=== PATIENT | male | born 1940 | race Caucasian/White ===

== ENCOUNTER 2017-01-01 23:57 | Emergency (ER) | payer MEDICARE ==
[2017-01-02] MEDS ORDERED: LIDOCAINE HCL 2% URO-JET 5 ML JEL.PF.APP MUCOUS MEM ONE (00:16)
--- NOTE | 2017-01-02 01:31 | ER NURSING DOCUMENTATION ---
Nurse's Notes [facility] Name:Pk Langley Age:76 yrs Sex:Male :1940 Arrival Date:01/01/2017 Time:23:57 Bed4 Private MD:Samy Delgado Diagnosis:Constipation Presentation: 01/02 00:00 Presenting complaint: Patient states: PT has not had a bowel movement for 4 days, pt rh took dulcolax this evening and attempted a fleets enema. Pt as of the last 4 hours has not been able to urinate. Transition of care: Home. 00:00 Acuity: TENA 3 rh 00:00 Method Of Arrival: Private Vehicle Triage Assessment: 00:03 General: Appears in no apparent distress, uncomfortable, Behavior is cooperative. Pain: rh Denies pain. EENT: Oral mucosa is dry. Neuro: Level of Consciousness is awake, alert, obeys commands. Cardiovascular: Capillary refill < 3 seconds. GI: Reports constipation, cramping, since 4 days ago. : Reports inability to void since 5 hours [employer]. Derm: Skin is intact, is healthy with good turgor, Skin is pink, warm & dry. Historical: - Allergies: No known drug Allergies; - Home Meds: 1. Simvastatin Oral 2. levothyroxine oral - PMHx: CONSTIPATION; BPH; HYPOTHYROIDISM; HIGH CHOLESTEROL; - PSHx: LASER PROSTATE SURGERY; - Tetanus: < 10 years. - Ebola Screening: : Patient negative for fever greater than or equal to 101.5 degrees Fahrenheit, and additional compatible Ebola Virus Disease symptoms. - Immunization history: Flu Vaccine < 1 year. - Social history: Smoking status: Patient states former smoker of tobacco. Screenin:21 Infectious Disease Risk None. Abuse screen: Denies threats or abuse. Denies injuries rh from another. Nutritional screening: No deficits noted. Assessment: 00:21 See Triage Assessment done by same RN. 01:15 Reassessment: PT was able to urinate twice and had one large bowel movement as well. . rh Vital Signs: 00:05 BP 160 / 74; Pulse 87; Resp 17; Temp 97.6(O); Pulse Ox 94% on R/A; Weight 81.65 kg; rh Height 5 ft. 8 in. (172.72 cm); Pain 0/10; 01:29 BP 155 / 86; Pulse 80; Resp 15; Pulse Ox 95% on R/A; Pain 0/10; rh 00:05 Body Mass Index 27.37 (81.65 kg, 172.72 cm) ED Course: 01/01 23:57 Patient arrived in ED. em2 23:57 Samy Delgado MD is Private Physician. em2 01/02 00:00 Sherri Clinton is Primary Nurse. 00:00 Notified ED Physician of patient's arrival and chief complaint. Dr. Ferguson notified. rh 00:01 Triage completed. rh 00:03 Pk Ferguson MD is Attending Physician. 00:21 Valuables Remains with patient Patient has correct armband on for positive rh identification. Placed in gown. Bed in low position. Call light in reach. Side rails up X 1. 00:21 Quick cath inserted 16 Fr. Returned clear yellow urine. Patient tolerated well. rh 00:36 Samy Delgado MD is Referral Physician. 00:40 Soap suds enema given. Patient tolerated poorly. rh 01:13 Soap suds enema given. Patient tolerated well. rh Administered Medications: 00:22 Drug: Urojet - Lidocaine Viscous Gel 2 % 1 application; Route: Mucous Membrane; rh Outcome: 00:37 Discharge ordered by . 01:29 Discharged to home ambulatory, with significant other. 01:29 Condition: improved 01:29 Discharge Assessment: Patient awake, alert and oriented x 3. No cognitive and/or functional deficits noted. Patient verbalized understanding of disposition instructions. 01:29 Discharge instructions given to patient, significant other, Instructed on discharge instructions, follow up and referral plans. Demonstrated understanding of instructions. 01:30 Patient left the ED. Signatures: Pk Ferguson MD MD jm Meinking-reg, Naomie-reg em2 Sherri Clinton
--- NOTE | 2017-01-02 01:31 | ER PHYSICIAN DOCUMENTATION ---
Physician Documentation [facility] Name:Pk Langley Age:76 yrs Sex:Male :1940 Arrival Date:01/01/2017 Time:23:57 Bed4 Private MD:Samy Delgado EDPk Ferguson Disposition: 01/02/17 00:37 Discharged to Home/Self Care. Impression: Constipation. - Condition is Good. - Discharge Instructions: CONSTIPATION (Adult). - Medical Reconciliation form form. - Follow up: Samy Delgado MD; When: 2 - 3 days; Reason: Continuance of care. - Problem is new. - Symptoms have improved. HPI: 01/02 00:00 This 76 yrs old Male presents to ER via Private Vehicle with complaints of jm Constipation. 00:00 The patient presents to the emergency department with constipation. Onset: The jm symptom(s)/episode began/occurred 3 day(s) ago. Context: the patient has no known special context relating to the rectal area complaint(s). Associate signs and symptoms: Pertinent positives: constipation, urinary retention. . The patient has not experienced similar symptoms in the past. Pt has tried fleets enema w/o luck . Historical: - Allergies: No known drug Allergies; - Home Meds: 1. Simvastatin Oral 2. levothyroxine oral - PMHx: CONSTIPATION; BPH; HYPOTHYROIDISM; HIGH CHOLESTEROL; - PSHx: LASER PROSTATE SURGERY; - Tetanus: < 10 years. - Ebola Screening: : Patient negative for fever greater than or equal to 101.5 degrees Fahrenheit, and additional compatible Ebola Virus Disease symptoms. - Immunization history: Flu Vaccine < 1 year. - Social history: Smoking status: Patient states former smoker of tobacco. ROS: 00:00 Constitutional: Negative for fatigue, fever. jm 00:00 Abdomen/GI: Positive for constipation, Negative for nausea, vomiting. 00:00 : Positive for pelvic pain, difficulty urinating. 00:00 All other systems are negative. Exam: 00:00 Constitutional: The patient appears alert, awake. jm 00:00 Respiratory: Respirations: normal, Breath sounds: are normal. 00:00 Abdomen/GI: Palpation: abdomen is soft and non-tender, Rectal exam: swelling, is not appreciated, fecal impaction, that is moderate. 00:00 Abdomen/GI: Bowel sounds: normal. 00:00 : Male external genitalia: normal, Bladder: is normal. Vital Signs: 00:05 BP 160 / 74; Pulse 87; Resp 17; Temp 97.6(O); Pulse Ox 94% on R/A; Weight 81.65 kg; rh Height 5 ft. 8 in. (172.72 cm); Pain 0/10; 01:29 BP 155 / 86; Pulse 80; Resp 15; Pulse Ox 95% on R/A; Pain 0/10; rh 00:05 Body Mass Index 27.37 (81.65 kg, 172.72 cm) rh Procedures: 00:00 Fecal disimpaction: digital disimpaction was performed, with a moderate amount of stool jm expressed. The patient tolerated the intervention well. MDM: 00:00 Differential diagnosis: impaction. Data reviewed: vital signs, nurses notes, and as a result, I will discharge patient. Counseling: I had a detailed discussion with the patient and/or guardian regarding: the historical points, exam findings, and any diagnostic results supporting the discharge/admit diagnosis, the need for outpatient follow up. Response to treatment: the patient's symptoms have markedly improved after treatment, the patient's symptoms have resolved after treatment. ED course: Impaction noted, but I couldn't get much out b/c it was so soft. Enema given and pt had very positive results. Straight cath id not show any significant amount of urine. . 00:03 Patient medically screened. 01/02 00:21 Order name: Straight Cath; Complete Time: 00:21 01/02 00:36 Order name: Enema: Soap Suds; Complete Time: 00:37 01/02 01:13 Order name: Enema: Soap Suds; Complete Time: 01:13 Dispensed Medications: 00:22 Drug: Urojet - Lidocaine Viscous Gel 2 % 1 application; Route: Mucous Membrane; Signatures: Pk Ferguson MD MD Sherri Clinton
== END 2017-01-02 01:30 | disposition home or self-care (01) ==
LOC: ER 23:57
DX: K59.00 Constipation, unspecified (principal); K56.41 Fecal impaction; R33.9 Retention of urine, unspecified; Z79.899 Other long term (current) drug therapy
CPT/HCPCS: 46608; 99282; 99284